=== PATIENT | male | born 1965 | race Caucasian/White ===

== ENCOUNTER 2019-04-16 07:21 | Inpatient (IN) | payer BC ==
[~2019-04-16] VITALS: Ht 177.8 cm; Wt 95.8 kg
[~2019-04-16 07:21] MED LIST: BAY PO; LAC PO; LEVAQUIN750 MG PO; LISINOPRIL10 MG PO; NEU300 PO
--- NOTE | 2019-04-16 07:30 | NUR ---
EKG IN PROGRESS IN TRIAGE.
--- NOTE | 2019-04-16 07:38 | NUR ---
PT WHEELED INTO BED 2B FOR EVAL, BIB SELF C/O CP AND SOB, LAB AT BEDSIDE FOR BLOOD DRAW.
--- NOTE | 2019-04-16 07:44 | NUR ---
FINESSE GARRETT AT BEDSIDE FOR REPEAT EKG, PER DR ROA.
[2019-04-16 07:50] LABS: BASOPHIL % 0.7 % (0-2); PLATELET COUNT 187 x10^3mcL (130-400); RED CELL DISTRIBUTION WIDTH 13.6 % (11.5-14.5)
--- NOTE | 2019-04-16 07:51 | NUR ---
XRAY AT BEDSIDE.
[2019-04-16 08:04] LABS: CALCIUM 8.5 mg/dL (8.5-10.1); CARBON DIOXIDE 25.8 mmol/L (21-32); CHLORIDE SERUM 104 mmol/L (98-107); CREATININE SERUM 1.2 mg/dL (0.7-1.3); GFR1 > 60 mL/min; GLUCOSE SERUM 101 mg/dL (74-106); POTASSIUM SERUM 4.3 mmol/L (3.5-5.1); SODIUM SERUM 137 mmol/L (136-145)
[2019-04-16 08:09] LABS: ALKALINE PHOSPHATASE 46 U/L (46-116); ALT/SGPT 28 U/L (16-63); AST/SGOT 12 U/L (15-37); BILIRUBIN TOTAL 0.9 mg/dL (0.20-1.00); TOTAL PROTEIN, SERUM 6.9 g/dL (6.4-8.2)
--- NOTE | 2019-04-16 08:19 | NUR ---
PT MEDICATED PER EMAR. X1 NITRO GIVEN.
--- NOTE | 2019-04-16 08:25 | NUR ---
MEDICATED PER EMAR, SECOND NITRO GIVEN.
--- NOTE | 2019-04-16 08:29 | NUR ---
PT DENIES PAIN AT THIS TIME, 3RD NITRO HELD, DR ABARCA MADE AWARE.
--- NOTE | 2019-04-16 09:37 | NUR ---
PT RESTING ON ED GURNEY, RESPS E/U,NAD NOTED, CALL LIGHT WITHIN REACH, AXEL RAILS RAISED FOR SAFETY, ON FULL CM.
[2019-04-16] MEDS ORDERED: ENALAPRIL MALE2.5 MG PO (09:38)
--- NOTE | 2019-04-16 10:41 | NUR ---
MOVED TO BED ORTHO.
--- NOTE | 2019-04-16 10:50 | NUR ---
PT RESTING ON ED GURKYLE,RESPS E/U, STS "I FEEL FINE", DENIES CP, DIZZINESS, SOB. ON FULL CM, CALL LIGHT WITHIN REACH. DR ABARCA MADE AWARE OF VS, ORDERS GIVEN TO ORDER CARDIAC DIET.
--- NOTE | 2019-04-16 13:15 | NUR ---
REPORT GIVEN TO LALITO ROLDAN TO ASSUME CARE OF PT.
--- NOTE | 2019-04-16 13:20 | NUR ---
RECEIVED PT FROM ED [employer]IA [employer], CAME IN DUE TO CHEST PAIN. AAOX4. DENIES HEADACHE/DIZZINESS. ABLE TO FOLLOW COMMANDS. NO SOB NOTED, LUNG SOUNDS CTA. O2 SAT=99%, RA. DENIES CHEST PAIN/PRESSURE, SINUS BRADYCARDIA ON THE MONITOR, HR AT 50. STATED THAT HE HAS TINGLING SENSATION ON THE CHEST. DENIES ABDOMINAL DISCOMFORT. ABDOMEN IS SOFT. VOIDS. IV SITE ON THE LAC GAUGE 18, PATENT AND INTACT. SIDE RAILS UPX2. CALL LIGHT ON REACH. PRIMARY NURSE MISTY AT BEDSIDE FOR CONTINUITY OF CARE
[2019-04-16 13:38] VITALS: BP 137/84
[2019-04-16 13:40] VITALS: Ht 177.8 cm; Wt 95.8 kg
[2019-04-16 14:32] LABS: CHOLESTEROL/HDL RATIO 5.6; MAGNESIUM 1.9 mg/dL (1.8-2.4); PHOSPHOROUS 2.8 mg/dL (2.5-4.9)
[2019-04-16 15:08] LABS: microscopic required? NO
[2019-04-16 15:23] LABS: urine erythrocyte NEGATIVE (NEGATIVE)
[2019-04-16 15:33] LABS: AMPHETAMINE QUAL UR NONE DETECTED (See below)
--- NOTE | 2019-04-16 16:15 | NUR ---
PT REPORTS MILD HEADACHE, RATES 3/10, ACHING, REPORTS TOLERABLE AT THIS TIME. DECLINED TO MEDICATION. AA/OX4. NO SOB ON ROOM AIR. DENIES CHEST PAIN. CALM/COOPERATIVE. IV WNL, SALINE LOCKED. FAMILY AT BEDSIDE. BED IN LOW POSITION. CALL LIGHT WITHIN REACH. WILL CONTINUE TO MONITOR.
[2019-04-16 16:24] VITALS: BP 135/81
--- NOTE | 2019-04-16 17:44 | NUR ---
SINUS ALEK ON TELE, HR RANGES BETWEEN 30S-40S WHILE RESTING WITH BOTH EYES CLOSED. WOKE PT UP, DENIES SYMPTOMS, DENIES DIZZINESS, NO ROSS. NO N/V. NO CHEST PAIN. DR. LUNA AWARE. PT CALM/COOPERATIVE LAYING IN BED. BED IN LOW POSITION. CALL LIGHT WITHIN REACH. WILL CONTINUE TO MONITOR.
--- NOTE | 2019-04-16 18:56 | NUR ---
PT LAYING IN BED. AA/OX4. DENIES CHEST PAIN. NO SOB ON ROOM AIR. NO DIZZINESS. NO ROSS. NO S/S OF ACUTE DISTRESS. IV WNL TO LAC, PATENT AND FLUSHES WELL. CALM/COOPERATIVE. BED IN LOW POSITION. CALL LIGHT WITHIN REACH. WILL ENDORSE TO ONCOMING SHIFT.
--- NOTE | 2019-04-16 19:30 | NUR ---
RECEIVED PT FROM DAY SHIFT RN. PT AAOX4 DENIES ROSS/DIZZINESS. PT BREATHING EVEN AND UNLABORED ON RA. NO SOB NOTED. TELE #8 NSR HR 45. PT DENIES CHEST PAIN/PRESSURE. NO SIGNS OF DISTRESS NOTED. PT AMBULATORY. IV LAC PATENT, SL. DAUGHTER AT BEDSIDE. CALL BUTTON WITHIN REACH. SAFETY PRECAUTIONS IN PLACE. WILL CONTINUE TO MONITOR.
--- NOTE | 2019-04-16 20:00 | NUR ---
DR MACKENZIE MADE AWARE PT HR 45 [address] AT THIS TIME. PER DR MACKENZIE TO MONITOR HR.
[2019-04-16 20:29] VITALS: BP 123/81
--- NOTE | 2019-04-17 00:05 | NUR ---
PT RESTING BREATHING EVEN AND UNLABORED ON RA WITH NO SOB NOTED. NO SIGNS OF ACUTE DISTRESS. CALL BUTTON WITHIN REACH. SAFETY PRECAUTIONS IN PLACE. WILL MONITOR.
--- NOTE | 2019-04-17 04:03 | NUR ---
PT RESTING. BREATHING EVEN AND UNLABORED NO SOB NOTED. CALL BUTTON WITHIN REACH. SAFETY PRECAUTONS IN PLACE. WILL MONITOR.
[2019-04-17 05:01] VITALS: BP 148/87
--- NOTE | 2019-04-17 06:21 | NUR ---
PT SLEPT MOST OF THE NIGHT WITH NO SIGNS OF DISTRESS. BREATHING EVEN AND UNLABORED ON RA. NO SOB NOTED. PT DENIES CHEST PAIN/PRESSURE. PT RANGE FROM 40'S TO 60 BPM. HR PER MONITOR AT 50 AT THIS TIME. NO SIGNS OF DISTRESS. PT MEDICATED PER EMAR. AMBULAOTRY WITH BRP. CALL BUTTON WITHIN REACH. SAFETY PRECAUTIONS IN PLACE. WILL CONTINUE TO MONITOR AND ENDORSE CARE TO DAY SHIFT RN.
[2019-04-17 06:30] LABS: BASOPHIL % 0.4 % (0-2); PLATELET COUNT 176 x10^3mcL (130-400); RED CELL DISTRIBUTION WIDTH 13.6 % (11.5-14.5)
[2019-04-17 06:50] LABS: CALCIUM 8.7 mg/dL (8.5-10.1); CARBON DIOXIDE 27.7 mmol/L (21-32); CHLORIDE SERUM 103 mmol/L (98-107); CREATININE SERUM 1.1 mg/dL (0.7-1.3); GFR1 > 60 mL/min; GLUCOSE SERUM 102 mg/dL (74-106); MAGNESIUM 1.9 mg/dL (1.8-2.4); PHOSPHOROUS 3.2 mg/dL (2.5-4.9); POTASSIUM SERUM 4.6 mmol/L (3.5-5.1); SODIUM SERUM 138 mmol/L (136-145)
--- NOTE | 2019-04-17 07:20 | NUR ---
RECEIVED PT FROM GOLD RN. PT AA/OX4. DENIES CHEST PAIN. NO SOB ON ROOM AIR. NO NUMBNESS/TINGLING. NO S/S OF ACUTE DISTRESS. FACE SYMMETRICAL. SPEECH CLEAR. IV WNL TO LAC, SALINE LOCKED. CALM/COOPERATIVE. BED IN LOW POSITION. CALL LIGHT WITHIN REACH. SIDE RAILS UP X2. SINUS ALEK/SINUS RHYTHM ON TELE 8. WILL CONTINUE TO MONITOR.
--- NOTE | 2019-04-17 07:28 | NUR ---
PT RESTING. NO SIGNS OF DISTRESS. ENDORSED CARE TO DAY SHIFT RN, ALL QUESTIONS ADDRESSED.
[2019-04-17 08:10] VITALS: BP 155/89
--- NOTE | 2019-04-17 08:12 | NUR ---
ECHOCARDIOGRAM PENDING-NURSE WITH PATIENT
--- NOTE | 2019-04-17 10:39 | NUR ---
PT AA/OX4, AMBULATED IN [place] THIS AM, TOLERATED ACTIVITY WELL. DENIES CHEST PAIN. NO ROSS. NO DIZZINESS. NO FATIGUE. CALM/COOPERATIVE. NO SOB ON ROOM AIR. IV WNL TO LAC, SALINE LOCKED. BED IN LOW POSITION. CALL LIGHT WITHIN REACH. WILL CONTINUE TO MONITOR.
[2019-04-17 11:59] VITALS: BP 136/82
[2019-04-17 16:16] VITALS: BP 121/72
--- NOTE | 2019-04-17 16:20 | NUR ---
PT DISCHARGED TO HOME. AWAKE, ALERT, ORIENTED X4. NO COMPLAINT OF PAIN. NO CHEST PAIN. DENIES NUMBNESS/TINGLING. FACE SYMMETRICAL. SPEECH CLEAR. NO SOB ON ROOM AIR. CALM/COOPERATIVE. DISCHARGE EDUCATION PROVIDED TO PATIENT. INSTRUCTED TO FOLLOW UP WITH PCP AT UPCOMING APPT. PT VERBALIZED UNDERSTANDING. BELONGINGS WITH PATIENT. AMBULATORY WTIH FULL ROM. GAIT STEADY. ESCORTED TO DISCHARGE LOBBY BY DEBRA MCGILL. ACCOMPANIED BY SUKH.
== END 2019-04-17 16:18 | disposition home or self-care (01) | DRG 313 ==
LOC: ED 07:21 → DU 12:12
PROVIDERS: ADMIT General Practice
DX: R07.89 Other chest pain (principal); N17.0 Acute kidney failure with tubular necrosis; I10 Essential (primary) hypertension; I25.2 Old myocardial infarction; Z83.3 Family history of diabetes mellitus; Z52.4 Kidney donor
CPT/HCPCS: 83880; 85378; 90658; G0378; Q0092